=== PATIENT | male | born 1985 | race Caucasian/White ===

== ENCOUNTER → 2017-07-12 | Outpatient (CLI) | payer OTHER | END | disposition home or self-care (01) | LOC: KCIC MRI 07:45 | DX: S83.011A Lateral subluxation of right patella, initial encounter (principal); M17.11 Unilateral primary osteoarthritis, right knee; M94.261 Chondromalacia, right knee; M25.461 Effusion, right knee; R60.0 Localized edema; X58.XXXA Exposure to other specified factors, initial encounter; Y93.89 Activity, other specified; Y92.89 Other specified places as the place of occurrence of the external cause; Y99.8 Other external cause status | CPT/HCPCS: 73721 ==

== ENCOUNTER 2020-10-04 19:51 | Emergency (ER) | payer OTHER ==
[~2020-10-04] VITALS: Ht 185.4 cm; Wt 155.0 kg
[2020-10-04 21:15] VITALS: BP 149/98
== END 2020-10-04 23:00 | disposition left against medical advice (07) ==
LOC: ER 19:51
DX: R05 Cough (principal); R09.81 Nasal congestion; N50.811 Right testicular pain; Z53.21 Procedure and treatment not carried out due to patient leaving prior to being seen by health care provider